=== PATIENT | female | born 1970 | race Caucasian/White ===

== ENCOUNTER 2017-09-26 17:32 | Emergency (ER) | payer MEDICAID ==
[~2017-09-26] VITALS: Ht 154.9 cm; Wt 66.0 kg
[2017-09-26] MEDS ORDERED: SODIUM CHLORIDE 0.9% 1,000 ML IV ONE ×2 (20:07→22:25)
[2017-09-26] MEDS ORDERED: KETOROLAC 30MG/ML VIAL IV STA (20:07)
[2017-09-26] MEDS ORDERED: ONDANSETRON HCL 4MG/2ML VIAL IV STA (20:07)
[2017-09-26 20:35] LABS: BASOPHILS % 0.6 % (0.0-2.0); EOSINOPHILS % 8.2 % (0.0-5.0); HEMATOCRIT. 37.4 % (36.0-48.0); HEMOGLOBIN. 12.4 g/dL (12.0-16.0); LYMPHOCYTES % 14.9 % (20.0-50.0); MEAN CORPUSCULAR HEMOGLOBIN 27.5 pg (28.0-32.0); MEAN CORPUSCULAR VOLUME 82.6 fL (81.0-99.0); MEAN PLATELET VOLUME 8.6 fl (7.4-10.4); MONOCYTES % 4.9 % (2.0-8.0); NEUTROPHILS % 71.4 % (40.0-76.0); PLATELET 259 x1000/uL (130-400); RED BLOOD CELL COUNT 4.53 mill/uL (4.2-5.4); RED CELL DISTRIBUTION WIDTH 13.5 % (11.6-14.6)
[2017-09-26 20:37] LABS: CHLORIDE 105 mEq/L (98-107)
[2017-09-26 20:38] LABS: PROTHROMBIN TIME 10.3 sec (9.4-11.6)
[2017-09-26 20:51] LABS: CARBON DIOXIDE 26 mEq/L (21-32); ETHANOL BLOOD < 10 mg/dL; TROPONIN I < 0.02 ng/mL (0.00-0.04)
[2017-09-26 22:54] LABS: CLARITY URINE CLEAR (CLEAR); COLOR URINE YELLOW (YELLOW); KETONES URINE NEGATIVE (NEGATIVE); LEUKOCYTE ESTERASE URINE NEGATIVE (NEGATIVE); NITRITE URINE NEGATIVE (NEGATIVE); OCCULT BLOOD URINE 2+ (NEGATIVE); PROTEIN URINE NEGATIVE (NEGATIVE); SPECIFIC GRAVITY URINE 1.021 (1.005-1.030); UROBILINOGEN URINE 0.2 E.U./dL (0.2-1.0)
[2017-09-26 23:07] LABS: *AMPHETAMINES SCREEN URINE NEGATIVE (NEGATIVE); *BARBITURATES SCREEN URINE NEGATIVE (NEGATIVE); *BENZODIAZEPINES SCREEN URINE NEGATIVE (NEGATIVE); *COCAINE SCREEN URINE NEGATIVE (NEGATIVE); CANNABINOID URINE SCREEN NEGATIVE (NEGATIVE); METHADONE URINE SCREEN NEGATIVE (NEGATIVE); OPIATES URINE SCREEN NEGATIVE (NEGATIVE); PHENCYCLIDINE URINE SCREEN NEGATIVE (NEGATIVE)
[2017-09-27 02:00] VITALS: BP 97/57
== END 2017-09-27 02:15 | disposition home or self-care (01) ==
LOC: ER 20:20
DX: R10.12 Left upper quadrant pain (principal); G43.909 Migraine, unspecified, not intractable, without status migrainosus; J45.909 Unspecified asthma, uncomplicated
CPT/HCPCS: 36415; 70450; 71010; 74176; 80053; 80305; 81001; 81025; 83690; 84484; 85025; 85610; 93005; 96361; 96374; 96375; 99285; G0482; J1885; J2405; J7030; Z7610

== ENCOUNTER 2021-12-01 11:50 | Emergency (ER) | payer MEDICAID ==
[~2021-12-01] VITALS: Ht 152.4 cm; Wt 59.0 kg
[2021-12-01] MEDS ORDERED: KETOROLAC 30MG/ML VIAL IV ONE (13:00)
[2021-12-01] MEDS ORDERED: ONDANSETRON HCL 4MG/2ML INJ IV ONE (13:00)
[2021-12-01 13:08] LABS: HEMATOCRIT. 36.6 % (36.0-48.0); HEMOGLOBIN. 12.4 g/dL (12.0-16.0); MEAN CORPUSCULAR VOLUME 82.5 fL (81.0-99.0); MEAN PLATELET VOLUME 8.7 fl (7.4-10.4); PLATELET 276 x1000/uL (130-400); RED BLOOD CELL COUNT 4.44 mill/uL (4.2-5.4); RED CELL DISTRIBUTION WIDTH 13.5 % (11.6-14.6)
[2021-12-01 13:13] LABS: CHLORIDE 106 mEq/L (98-107)
[2021-12-01 13:34] VITALS: BP 124/65
[2021-12-01 13:37] LABS: CLARITY URINE CLEAR (CLEAR); COLOR URINE YELLOW (YELLOW); KETONES URINE NEGATIVE (NEGATIVE); LEUKOCYTE ESTERASE URINE NEGATIVE (NEGATIVE); NITRITE URINE NEGATIVE (NEGATIVE); OCCULT BLOOD URINE NEGATIVE (NEGATIVE); PH URINE 6.5 (4.5-8.0); PROTEIN URINE NEGATIVE (NEGATIVE); SPECIFIC GRAVITY URINE 1.017 (1.005-1.030)
[2021-12-01 13:40] LABS: HCG SCREEN NEGATIVE
[2021-12-01 14:01] LABS: PLATELET ESTIMATE NORMAL
[2021-12-01] MEDS ORDERED: TOPUD PO (15:15)
[2021-12-01] MEDS ORDERED: ONDA4TAB5 PO (15:15)
== END 2021-12-01 15:27 | disposition home or self-care (01) ==
LOC: ER 11:50
DX: G89.18 Other acute postprocedural pain (principal); R10.11 Right upper quadrant pain; J45.909 Unspecified asthma, uncomplicated; Z90.49 Acquired absence of other specified parts of digestive tract; Z98.890 Other specified postprocedural states; Z86.59 Personal history of other mental and behavioral disorders
CPT/HCPCS: 36415; 74176; 78227; 80053; 81003; 83690; 84703; 85025; 96374; 96375; 99284; A9537; J1885; J2405